=== PATIENT | male | born 1935 | race Caucasian/White ===

== ENCOUNTER 2021-03-04 12:15 | Emergency (ER) | payer MEDICARE, MEDICAID ==
[~2021-03-04] VITALS: Ht 175.3 cm; Wt 95.0 kg
[2021-03-04] MEDS ORDERED: SODIUM CHLORIDE 0.9% 500 ML IV ONE (12:45)
[2021-03-04 13:23] LABS: BG BASE EXCESS -3.1 mmol/L (-2.0-2.0); BG CARBOXYHEMOGLOBIN 0.2 % (0.5-1.5); BG DEOXYHEMOGLOBIN 3.9 % (0.0-5.0); BG FRACTION INSPIRED OXYGEN 21; BG METHEMOGLOBIN 0.2 % (0.0-1.5); BG OXYGEN SATURATION 96.1 % (92.0-98.5); BG OXYHEMOGLOBIN 95.7 % (94.0-97.0); BG PCO2 23.7 mmHg (35.0-45.0); BG PH 7.499 (7.350-7.450); BG PO2 82.4 mmHg (75.0-100.0); BG SAMPLE SITE LEFT RADIAL; BG TOTAL HEMOGLOBIN 14.6 g/dL (12.0-18.0); BG VENT MODE ROOM AIR
[2021-03-04 13:24] LABS: HEMOGLOBIN. 15.2 g/dL (14.0-18.0); MEAN CORPUSCULAR HEMOGLOBIN 32.3 pg (28.0-32.0); MEAN CORPUSCULAR VOLUME 91.6 fL (80.0-94.0); MEAN PLATELET VOLUME 9.4 fl (7.4-10.4); PLATELET 52 x1000/uL (130-400); RED CELL DISTRIBUTION WIDTH 13.9 % (11.6-14.6)
[2021-03-04 13:28] LABS: CHLORIDE 105 mEq/L (98-107)
[2021-03-04 13:35] LABS: ETHANOL BLOOD < 10 mg/dL
[2021-03-04 13:37] LABS: CREATINE KINASE 176 IU/L (39-308)
[2021-03-04 13:42] LABS: PLATELET ESTIMATE DECREASED
[2021-03-04] MEDS ORDERED: SODIUM CHLORIDE 0.9% 1000ML BAG (SEPSIS BOLUS) IV ONE (14:00)
[2021-03-04 14:43] LABS: CLARITY URINE CLOUDY (CLEAR); COLOR URINE DARK YELLOW (YELLOW); KETONES URINE TRACE (NEGATIVE); LEUKOCYTE ESTERASE URINE 2+ (NEGATIVE); NITRITE URINE NEGATIVE (NEGATIVE); OCCULT BLOOD URINE 2+ (NEGATIVE); PROTEIN URINE 2+ (NEGATIVE); SPECIFIC GRAVITY URINE 1.026 (1.005-1.030)
[2021-03-04] MEDS ORDERED: AZITHROMYCIN 500MG/250ML 250 ML IV ONE (14:45)
[2021-03-04] MEDS ORDERED: CEFTRIAXONE 1 G PREMIX 50 ML IV ONE (14:45)
[2021-03-04 15:14] LABS: *BARBITURATES SCREEN URINE NEGATIVE (NEGATIVE); *BENZODIAZEPINES SCREEN URINE NEGATIVE (NEGATIVE)
[2021-03-04 15:15] LABS: *COCAINE SCREEN URINE NEGATIVE (NEGATIVE); CANNABINOID URINE SCREEN NEGATIVE (NEGATIVE); METHADONE URINE SCREEN NEGATIVE (NEGATIVE); OPIATES URINE SCREEN NEGATIVE (NEGATIVE); PHENCYCLIDINE URINE SCREEN NEGATIVE (NEGATIVE)
[2021-03-04 15:17] LABS: *AMPHETAMINES SCREEN URINE NEGATIVE (NEGATIVE)
[2021-03-04 19:13] VITALS: BP 112/75
== END 2021-03-04 19:24 | disposition short-term general hospital (02) ==
LOC: ER 12:27 → EDBEDREQ 14:52 → EDBEDREQTM 14:52 → ER 19:24 → CANBEDREQ 22:34
DX: E11.65 Type 2 diabetes mellitus with hyperglycemia (principal); G93.49 Other encephalopathy; N39.0 Urinary tract infection, site not specified; N28.9 Disorder of kidney and ureter, unspecified; I10 Essential (primary) hypertension; Z20.822 Contact with and (suspected) exposure to COVID-19
CPT/HCPCS: 36415; 36600; 70450; 71045; 80053; 80305; 80307; 80320; 80329; 81003; 82140; 82375; 82550; 82805; 83690; 83880; 84443; 84484; 85025; 87077; 87086; 87186; 87426; 93005; 96365; 96366; 96375; 99291; C9803; J0456; J0696; J7030; J7040; U0003; U0005; G0480

== ENCOUNTER 2021-03-20 16:13 | Emergency (ER) | payer MEDICARE, MEDICAID ==
[~2021-03-20] VITALS: Ht 172.7 cm; Wt 70.0 kg
[2021-03-20] MEDS ORDERED: CEFTRIAXONE 1 G PREMIX 50 ML IV ONE (17:15)
[2021-03-20] MEDS ORDERED: SODIUM CHLORIDE 0.9% 1,000 ML IV ONE (17:15)
[2021-03-20] MEDS ORDERED: AZITHROMYCIN 500MG/250ML 250 ML IV ONE (17:15)
[2021-03-20 18:46] LABS: BASOPHILS % 0.3 % (0.0-2.0); EOSINOPHILS % 0.2 % (0.0-5.0); HEMATOCRIT. 44.7 % (42.0-52.0); HEMOGLOBIN. 14.8 g/dL (14.0-18.0); LYMPHOCYTES % 7.7 % (20.0-50.0); MEAN CORPUSCULAR HEMOGLOBIN 30.3 pg (28.0-32.0); MEAN CORPUSCULAR VOLUME 91.6 fL (80.0-94.0); MEAN PLATELET VOLUME 8.6 fl (7.4-10.4); NEUTROPHILS % 89.8 % (40.0-76.0); PLATELET 272 x1000/uL (130-400); RED BLOOD CELL COUNT 4.88 mill/uL (4.7-6.1); RED CELL DISTRIBUTION WIDTH 15.1 % (11.6-14.6)
[2021-03-20 18:50] LABS: CHLORIDE 107 mEq/L (98-107)
[2021-03-20 18:55] LABS: ETHANOL BLOOD < 10 mg/dL
[2021-03-20 18:59] LABS: CREATINE KINASE 37 IU/L (39-308)
[2021-03-20 19:32] LABS: *AMPHETAMINES SCREEN URINE NEGATIVE (NEGATIVE); *BARBITURATES SCREEN URINE NEGATIVE (NEGATIVE); *BENZODIAZEPINES SCREEN URINE NEGATIVE (NEGATIVE); *COCAINE SCREEN URINE NEGATIVE (NEGATIVE); METHADONE URINE SCREEN NEGATIVE (NEGATIVE); OPIATES URINE SCREEN NEGATIVE (NEGATIVE)
[2021-03-20 19:33] LABS: CANNABINOID URINE SCREEN NEGATIVE (NEGATIVE); PHENCYCLIDINE URINE SCREEN NEGATIVE (NEGATIVE)
[2021-03-20 19:46] LABS: CLARITY URINE CLEAR (CLEAR); COLOR URINE YELLOW (YELLOW); KETONES URINE NEGATIVE (NEGATIVE); LEUKOCYTE ESTERASE URINE NEGATIVE (NEGATIVE); NITRITE URINE NEGATIVE (NEGATIVE); OCCULT BLOOD URINE 1+ (NEGATIVE); PROTEIN URINE TRACE (NEGATIVE); SPECIFIC GRAVITY URINE 1.015 (1.005-1.030)
[2021-03-20 21:05] VITALS: BP 126/68
== END 2021-03-21 00:13 | disposition short-term general hospital (02) ==
LOC: ER 16:13
DX: U07.1 COVID-19 (principal); E87.2 Acidosis; R41.82 Altered mental status, unspecified; I11.0 Hypertensive heart disease with heart failure; I50.9 Heart failure, unspecified
CPT/HCPCS: 36415; 70450; 71045; 80053; 80305; 80307; 80320; 80329; 81003; 82010; 82140; 82550; 82962; 83605; 83690; 84443; 84484; 85025; 87426; 93005; 96365; 96367; 99291; J0456; J0696; J7030; G0480

== ENCOUNTER 2021-04-05 19:59 | Inpatient (IN) | payer MEDICARE, MEDICAID ==
[~2021-04-05] VITALS: Ht 172.7 cm; Wt 83.5 kg
[2021-04-05] MEDS ORDERED: ACETAMINOPHEN 650MG SUPP PR STA (20:19)
[2021-04-05] MEDS ORDERED: DOXYCYCLINE 100MG in DEXTROSE 5% WATER 100ML IV NR (20:30)
[2021-04-05] MEDS ORDERED: CEFTRIAXONE 1 G PREMIX 50 ML IV ONE (20:30)
[2021-04-05] MEDS ORDERED: SODIUM CHLORIDE 0.9% 1000ML BAG (SEPSIS BOLUS) IV ONE (20:30)
[2021-04-05] MEDS ORDERED: DOXYCYCLINE HYCLATE 100 MG/VIAL IV ONE (20:30)
[2021-04-05 21:01] LABS: BASOPHILS % 0.2 % (0.0-2.0); EOSINOPHILS % 0.1 % (0.0-5.0); MONOCYTES % 2.2 % (2.0-8.0)
[2021-04-05 21:08] LABS: CHLORIDE 98 mEq/L (98-107)
[2021-04-05 21:11] LABS: HEMATOCRIT. 33.7 % (42.0-52.0); HEMOGLOBIN. 11.3 g/dL (14.0-18.0); MEAN CORPUSCULAR HEMOGLOBIN 30.8 pg (28.0-32.0); MEAN CORPUSCULAR VOLUME 92.1 fL (80.0-94.0); MEAN PLATELET VOLUME 10.5 fl (7.4-10.4); PLATELET 162 x1000/uL (130-400); RED BLOOD CELL COUNT 3.66 mill/uL (4.7-6.1); RED CELL DISTRIBUTION WIDTH 17.4 % (11.6-14.6)
[2021-04-05 22:12] LABS: CLARITY URINE CLEAR (CLEAR); COLOR URINE DARK YELLOW (YELLOW); KETONES URINE TRACE (NEGATIVE); LEUKOCYTE ESTERASE URINE 1+ (NEGATIVE); NITRITE URINE NEGATIVE (NEGATIVE); OCCULT BLOOD URINE TRACE (NEGATIVE); PROTEIN URINE NEGATIVE (NEGATIVE); SPECIFIC GRAVITY URINE 1.022 (1.005-1.030)
[2021-04-05] MEDS ORDERED: DEXTROSE 50% WATER 50ML SYRINGE IV ONE (22:30)
[2021-04-05 22:49] LABS: PLATELET ESTIMATE NORMAL
[2021-04-05] MEDS ORDERED: NOREPINEPHRINE 8 MG in DEXT 5% WATER 242 ML IV PRN ×2 (23:15→23:30)
[2021-04-05] MEDS ORDERED: SODIUM CHLORIDE 0.9% 1,000 ML IV ONE (23:15)
[2021-04-05] MEDS ORDERED: METOPROLOL TARTRATE 5MG/5ML VIAL IV NR (23:22)
[2021-04-06 05:11] LABS: HEMATOCRIT. 33.1 % (42.0-52.0); HEMOGLOBIN. 10.8 g/dL (14.0-18.0); MEAN CORPUSCULAR HEMOGLOBIN 30.6 pg (28.0-32.0); MEAN CORPUSCULAR VOLUME 94.1 fL (80.0-94.0); MEAN PLATELET VOLUME 10.2 fl (7.4-10.4); PLATELET 151 x1000/uL (130-400); RED BLOOD CELL COUNT 3.52 mill/uL (4.7-6.1); RED CELL DISTRIBUTION WIDTH 17.2 % (11.6-14.6)
[2021-04-06 05:16] LABS: CHLORIDE 103 mEq/L (98-107)
[2021-04-06] MEDS: DEXT 5%/0.45% NACL 1000ML 1,000 ML IV SCH (06:00)
[2021-04-06] MEDS ORDERED: DEXT 5%/0.45% NACL 1000ML 1,000 ML IV SCH (08:00)
[2021-04-06] MEDS: DOXYCYCLINE 100MG in DEXTROSE 5% WATER 100ML IV SCH ×2 (09:00→23:52)
[2021-04-06] MEDS ORDERED: PHENYLEPHRINE 100 MG in DEXT 5% WATER 240 ML IV PRN ×4 (12:45)
[2021-04-06] MEDS ORDERED: IPRATROPIUM BROMIDE (0.02%) 0.5MG/2.5ML NEB HHN PRN (13:15)
[2021-04-06] MEDS ORDERED: ACETAMINOPHEN 325MG TABLET PO PRN (13:15)
[2021-04-06] MEDS ORDERED: ONDANSETRON HCL 4MG/2ML INJ IV PRN (13:15)
[2021-04-06] MEDS: PANTOPRAZOLE SODIUM 40 MG/VIAL IV SCH (14:05)
[2021-04-06 15:09] LABS: INR 1.1; PROTHROMBIN TIME 12.2 sec (9.6-11.0)
[2021-04-06 16:59] LABS: PLATELET ESTIMATE NORMAL
[2021-04-06] MEDS ORDERED: CEFTRIAXONE 1 G PREMIX 50 ML IV SCH (20:00)
[2021-04-06] MEDS ORDERED: MEROPENEM 1,000 MG in SODIUM CHLORIDE 0.9% 100 ML IV SCH (23:00)
[2021-04-07] VITALS (19 sets, daily range): BP systolic 87–143; BP diastolic 41–78
[2021-04-07] MEDS: DEXT 5%/0.45% NACL 1000ML 1,000 ML IV SCH ×4 (00:04→22:12)
[2021-04-07 05:35] LABS: HEMATOCRIT. 31.3 % (42.0-52.0); HEMOGLOBIN. 10.5 g/dL (14.0-18.0); MEAN CORPUSCULAR HEMOGLOBIN 31.1 pg (28.0-32.0); MEAN CORPUSCULAR VOLUME 92.5 fL (80.0-94.0); MEAN PLATELET VOLUME 9.4 fl (7.4-10.4); PLATELET 124 x1000/uL (130-400); RED BLOOD CELL COUNT 3.38 mill/uL (4.7-6.1); RED CELL DISTRIBUTION WIDTH 17.5 % (11.6-14.6)
[2021-04-07 05:43] LABS: CHLORIDE 106 mEq/L (98-107)
[2021-04-07 05:53] LABS: PHOSPHORUS 4.1 mg/dL (2.5-4.9)
[2021-04-07 06:00] LABS: CREATINE KINASE 571 IU/L (39-308)
[2021-04-07] MEDS ORDERED: POTASSIUM CHLORIDE INJ 40 MEQ in DEXT 5% WATER 250 ML IV ONE (09:45)
[2021-04-07] MEDS: DOXYCYCLINE 100MG in DEXTROSE 5% WATER 100ML IV SCH ×2 (10:00→20:54)
[2021-04-07] MEDS: PANTOPRAZOLE SODIUM 40 MG/VIAL IV SCH (10:25)
[2021-04-07] MEDS ORDERED: MEROPENEM 1,000 MG in SODIUM CHLORIDE 0.9% 100 ML IV SCH (14:00)
[2021-04-07 14:27] LABS: TOTAL IRON BINDING CAPACITY 130 ug/dL (250-450)
[2021-04-07 14:46] LABS: FERRITIN 859 ng/mL (22-322)
[2021-04-07] MEDS: KCL 20MEQ/100ML X 2 FOR TOTAL KCL 40MEQ/200ML IV SCH ×2 (14:56→17:08)
[2021-04-07 15:16] LABS: VITAMIN B12 SERUM >2000 pg/mL pg/mL (211-911)
[2021-04-07 16:07] LABS: HEPATITIS B SURFACE ANTIGEN NEGATIVE
[2021-04-07 16:21] LABS: PLATELET ESTIMATE SLIGHTLY DECREASED
[2021-04-07] MEDS ORDERED: ENOXAPARIN 30MG/0.3ML SYR SUBCUT SCH (20:00)
[2021-04-07] MEDS: CEFTRIAXONE 2 G in DEXTROSE 5% WATER 50 ML IV SCH (22:12)
[2021-04-08] VITALS (20 sets, daily range): BP systolic 102–131; BP diastolic 49–88
[2021-04-08] MEDS ORDERED: VANCOMYCIN HCL 1 GM/VIAL PO SCH
[2021-04-08] MEDS: VANCOMYCIN 1000MG/20ML ORAL SOLN PO SCH ×5 (00:18→23:56)
[2021-04-08 07:10] LABS: HEMATOCRIT. 34.8 % (42.0-52.0); HEMOGLOBIN. 11.7 g/dL (14.0-18.0); MEAN CORPUSCULAR HEMOGLOBIN 31.6 pg (28.0-32.0); MEAN CORPUSCULAR VOLUME 93.6 fL (80.0-94.0); MEAN PLATELET VOLUME 9.9 fl (7.4-10.4); PLATELET 90 x1000/uL (130-400); RED BLOOD CELL COUNT 3.71 mill/uL (4.7-6.1); RED CELL DISTRIBUTION WIDTH 17.5 % (11.6-14.6)
[2021-04-08 07:59] LABS: PHOSPHORUS 3.1 mg/dL (2.5-4.9)
[2021-04-08] MEDS: DEXT 5%/0.45% NACL 1000ML 1,000 ML IV SCH ×2 (08:56→20:39)
[2021-04-08] MEDS: DOXYCYCLINE 100MG in DEXTROSE 5% WATER 100ML IV SCH (08:56)
[2021-04-08] MEDS: PANTOPRAZOLE SODIUM 40 MG/VIAL IV SCH (08:56)
[2021-04-08] MEDS: METRONIDAZOLE 500MG TABLET PO SCH ×2 (14:20→22:55)
[2021-04-08 17:11] LABS: PLATELET ESTIMATE DECREASED
[2021-04-08] MEDS ORDERED: DIATR MEGLU/DIATRIZOATE SOLN 30ML ONE (19:25)
[2021-04-08] MEDS: CEFTRIAXONE 2 G in DEXTROSE 5% WATER 50 ML IV SCH (20:39)
[2021-04-09] VITALS (18 sets, daily range): BP systolic 94–141; BP diastolic 24–80
[2021-04-09] MEDS: METRONIDAZOLE 500MG TABLET PO SCH ×3 (05:57→22:05)
[2021-04-09] MEDS: VANCOMYCIN 1000MG/20ML ORAL SOLN PO SCH ×3 (05:57→18:00)
[2021-04-09] MEDS: DEXT 5%/0.45% NACL 1000ML 1,000 ML IV SCH (07:18)
[2021-04-09 07:59] LABS: HEMATOCRIT. 31.7 % (42.0-52.0); HEMOGLOBIN. 10.9 g/dL (14.0-18.0); MEAN CORPUSCULAR HEMOGLOBIN 33.1 pg (28.0-32.0); MEAN CORPUSCULAR VOLUME 95.8 fL (80.0-94.0); MEAN PLATELET VOLUME 9.8 fl (7.4-10.4); PLATELET 71 x1000/uL (130-400); RED CELL DISTRIBUTION WIDTH 17.2 % (11.6-14.6)
[2021-04-09 09:06] LABS: FOLATE HEMATOCRIT 31.2 % (37.5-51.0)
[2021-04-09] MEDS: PANTOPRAZOLE SODIUM 40 MG/VIAL IV SCH (09:33)
[2021-04-09] MEDS ORDERED: DEXTROSE 50% WATER 50ML SYRINGE IV PRN (12:00)
[2021-04-09] MEDS: INSULIN LISPRO 100 UNITS/ML SUBCUT SCH ×3 (12:31→22:06)
[2021-04-09 14:04] LABS: FOLIC ACID (FOLATE) SERUM 19.8 ng/mL (>5.38)
[2021-04-09 14:38] LABS: PLATELET ESTIMATE DECREASED
[2021-04-09] MEDS: BLOOD SUGAR DIAGNOSTIC STRIP TEST SCH ×2 (16:50→21:28)
[2021-04-09 17:06] LABS: FOLATE RBC 1468 ng/mL (>498)
[2021-04-09] MEDS: CEFTRIAXONE 2 G in DEXTROSE 5% WATER 50 ML IV SCH (21:15)
[2021-04-10] VITALS (15 sets, daily range): BP systolic 106–170; BP diastolic 58–138
[2021-04-10] MEDS: VANCOMYCIN 1000MG/20ML ORAL SOLN PO SCH ×4 (00:40→18:43)
[2021-04-10] MEDS: METRONIDAZOLE 500MG TABLET PO SCH ×3 (06:10→22:12)
[2021-04-10] MEDS: BLOOD SUGAR DIAGNOSTIC STRIP TEST SCH ×4 (06:14→20:53)
[2021-04-10] MEDS: INSULIN LISPRO 100 UNITS/ML SUBCUT SCH ×4 (08:46→21:39)
[2021-04-10] MEDS: PANTOPRAZOLE SODIUM 40 MG/VIAL IV SCH (08:46)
[2021-04-10 12:20] LABS: HEMATOCRIT. 32.7 % (42.0-52.0); HEMOGLOBIN. 10.9 g/dL (14.0-18.0); MEAN CORPUSCULAR HEMOGLOBIN 31.4 pg (28.0-32.0); MEAN CORPUSCULAR VOLUME 93.8 fL (80.0-94.0); MEAN PLATELET VOLUME 9.6 fl (7.4-10.4); PLATELET 64 x1000/uL (130-400); RED BLOOD CELL COUNT 3.49 mill/uL (4.7-6.1); RED CELL DISTRIBUTION WIDTH 17.1 % (11.6-14.6)
[2021-04-10 12:22] LABS: CHLORIDE 116 mEq/L (98-107)
[2021-04-10 12:28] LABS: PHOSPHORUS 1.5 mg/dL (2.5-4.9)
[2021-04-10] MEDS ORDERED: POTASSIUM PHOS,M-BASIC-D-BASIC 30 MMOL in DEXT 5% WATER 500 ML IV ONE (13:30)
[2021-04-10 16:02] LABS: PLATELET ESTIMATE DECREASED
[2021-04-10] MEDS: CEFTRIAXONE 2 G in DEXTROSE 5% WATER 50 ML IV SCH (20:11)
[2021-04-11] VITALS (13 sets, daily range): BP systolic 90–150; BP diastolic 32–76
[2021-04-11] MEDS: VANCOMYCIN 1000MG/20ML ORAL SOLN PO SCH ×4 (01:45→17:32)
[2021-04-11] MEDS: METRONIDAZOLE 500MG TABLET PO SCH ×3 (05:39→22:03)
[2021-04-11] MEDS: BLOOD SUGAR DIAGNOSTIC STRIP TEST SCH ×4 (06:39→21:50)
[2021-04-11 07:31] LABS: BASOPHILS % 0.2 % (0.0-2.0); EOSINOPHILS % 0.1 % (0.0-5.0); HEMATOCRIT. 26.7 % (42.0-52.0); HEMOGLOBIN. 9.2 g/dL (14.0-18.0); LYMPHOCYTES % 7.9 % (20.0-50.0); MEAN CORPUSCULAR HEMOGLOBIN 33.3 pg (28.0-32.0); MEAN CORPUSCULAR VOLUME 96.3 fL (80.0-94.0); MEAN PLATELET VOLUME 10.2 fl (7.4-10.4); MONOCYTES % 2.3 % (2.0-8.0); NEUTROPHILS % 89.5 % (40.0-76.0); PLATELET 52 x1000/uL (130-400); RED BLOOD CELL COUNT 2.77 mill/uL (4.7-6.1); RED CELL DISTRIBUTION WIDTH 17.2 % (11.6-14.6)
[2021-04-11] MEDS: PANTOPRAZOLE SODIUM 40 MG/VIAL IV SCH (08:14)
[2021-04-11] MEDS: INSULIN LISPRO 100 UNITS/ML SUBCUT SCH ×4 (08:15→21:57)
[2021-04-11] MEDS ORDERED: SODIUM POLYSTYRENE SULFONATE 15 G/60 ML BOT PO SCH (10:00)
[2021-04-11] MEDS ORDERED: SODIUM BICARBONATE 8.4% 1 MEQ/ML 50ML SYR IV SCH (10:00)
[2021-04-11] MEDS ORDERED: SODIUM POLYSTYRENE SULFONATE 15 G/60 ML BOT PO ONE (10:15)
[2021-04-11 15:40] LABS: HEMATOCRIT 25.7 % (42.0-52.0); HEMOGLOBIN 8.6 g/dL (14.0-18.0)
[2021-04-11] MEDS: CEFTRIAXONE 2 G in DEXTROSE 5% WATER 50 ML IV SCH (21:46)
[2021-04-12] VITALS (30 sets, daily range): BP systolic 83–153; BP diastolic 35–77
[2021-04-12] MEDS: VANCOMYCIN 1000MG/20ML ORAL SOLN PO SCH ×4 (00:38→17:20)
[2021-04-12] MEDS: METRONIDAZOLE 500MG TABLET PO SCH ×3 (05:01→22:51)
[2021-04-12] MEDS: BLOOD SUGAR DIAGNOSTIC STRIP TEST SCH ×4 (06:21→21:30)
[2021-04-12 06:56] LABS: BASOPHILS % 0.2 % (0.0-2.0); EOSINOPHILS % 0.2 % (0.0-5.0); HEMOGLOBIN. 7.9 g/dL (14.0-18.0); LYMPHOCYTES % 10.2 % (20.0-50.0); MEAN CORPUSCULAR HEMOGLOBIN 32.1 pg (28.0-32.0); MEAN CORPUSCULAR VOLUME 96.9 fL (80.0-94.0); MEAN PLATELET VOLUME 10.6 fl (7.4-10.4); MONOCYTES % 2.7 % (2.0-8.0); NEUTROPHILS % 86.7 % (40.0-76.0); PLATELET 87 x1000/uL (130-400); RED BLOOD CELL COUNT 2.48 mill/uL (4.7-6.1); RED CELL DISTRIBUTION WIDTH 17.6 % (11.6-14.6)
[2021-04-12 07:08] LABS: PHOSPHORUS 3.1 mg/dL (2.5-4.9)
[2021-04-12] MEDS: PANTOPRAZOLE SODIUM 40 MG/VIAL IV SCH (08:18)
[2021-04-12] MEDS: INSULIN LISPRO 100 UNITS/ML SUBCUT SCH ×4 (08:18→21:39)
[2021-04-12] MEDS: METOPROLOL TARTRATE 25MG TABLET PO SCH ×2 (08:19→20:54)
[2021-04-12] MEDS: CEFTRIAXONE 2 G in DEXTROSE 5% WATER 50 ML IV SCH (21:38)
[2021-04-13] VITALS (10 sets, daily range): BP systolic 93–121; BP diastolic 30–74
[2021-04-13] MEDS: METRONIDAZOLE 500MG TABLET PO SCH ×2 (06:17→13:42)
[2021-04-13] MEDS: BLOOD SUGAR DIAGNOSTIC STRIP TEST SCH ×5 (06:17→23:18)
[2021-04-13 07:10] LABS: BASOPHILS % 0.5 % (0.0-2.0); EOSINOPHILS % 0.1 % (0.0-5.0); HEMATOCRIT. 27.3 % (42.0-52.0); HEMOGLOBIN. 8.9 g/dL (14.0-18.0); LYMPHOCYTES % 9.1 % (20.0-50.0); MEAN CORPUSCULAR HEMOGLOBIN 31.5 pg (28.0-32.0); MEAN CORPUSCULAR VOLUME 96.5 fL (80.0-94.0); MEAN PLATELET VOLUME 11.3 fl (7.4-10.4); MONOCYTES % 2.6 % (2.0-8.0); NEUTROPHILS % 87.7 % (40.0-76.0); PLATELET 68 x1000/uL (130-400); RED BLOOD CELL COUNT 2.83 mill/uL (4.7-6.1); RED CELL DISTRIBUTION WIDTH 17.1 % (11.6-14.6)
[2021-04-13 07:38] LABS: PHOSPHORUS 3.1 mg/dL (2.5-4.9)
[2021-04-13] MEDS: PANTOPRAZOLE SODIUM 40 MG/VIAL IV SCH (08:30)
[2021-04-13] MEDS: INSULIN LISPRO 100 UNITS/ML SUBCUT SCH ×4 (08:30→23:12)
[2021-04-13] MEDS: METOPROLOL TARTRATE 25MG TABLET PO SCH ×2 (08:30→21:06)
[2021-04-13] MEDS ORDERED: INSULIN GLARGINE UD 100 UNITS/ML SYR SUBCUT SCH (14:00)
[2021-04-13 20:23] LABS: HEMATOCRIT 27.1 % (42.0-52.0)
[2021-04-13] MEDS: CEFTRIAXONE 2 G in DEXTROSE 5% WATER 50 ML IV SCH (21:06)
[2021-04-13] MEDS: VANCOMYCIN 1000MG/20ML ORAL SOLN PO SCH ×2 (21:14)
[2021-04-13] MEDS: INSULIN GLARGINE UD 100 UNITS/ML SYR SUBCUT SCH (23:13)
[2021-04-14] VITALS (11 sets, daily range): BP systolic 100–128; BP diastolic 44–67
[2021-04-14] MEDS: VANCOMYCIN 1000MG/20ML ORAL SOLN PO SCH ×3 (05:36→17:26)
[2021-04-14] MEDS: INSULIN LISPRO 100 UNITS/ML SUBCUT SCH ×3 (06:23→17:26)
[2021-04-14] MEDS: BLOOD SUGAR DIAGNOSTIC STRIP TEST SCH ×3 (06:25→17:17)
[2021-04-14 07:21] LABS: PHOSPHORUS 3.1 mg/dL (2.5-4.9)
[2021-04-14] MEDS ORDERED: SODIUM CHLORIDE 0.45% 1,000 ML IV SCH (09:00)
[2021-04-14] MEDS: PANTOPRAZOLE SODIUM 40 MG/VIAL IV SCH (09:18)
[2021-04-14] MEDS: METOPROLOL TARTRATE 25MG TABLET PO SCH (09:19)
[2021-04-14 09:27] LABS: BASOPHILS % 0.3 % (0.0-2.0); EOSINOPHILS % 0.1 % (0.0-5.0); HEMATOCRIT. 29.3 % (42.0-52.0); HEMOGLOBIN. 9.3 g/dL (14.0-18.0); LYMPHOCYTES % 7.4 % (20.0-50.0); MEAN CORPUSCULAR HEMOGLOBIN 31.5 pg (28.0-32.0); MEAN CORPUSCULAR VOLUME 99.4 fL (80.0-94.0); MEAN PLATELET VOLUME 11.4 fl (7.4-10.4); MONOCYTES % 3.1 % (2.0-8.0); NEUTROPHILS % 89.1 % (40.0-76.0); PLATELET 56 x1000/uL (130-400); RED BLOOD CELL COUNT 2.94 mill/uL (4.7-6.1); RED CELL DISTRIBUTION WIDTH 18.3 % (11.6-14.6)
[2021-04-14] MEDS: INSULIN GLARGINE UD 100 UNITS/ML SYR SUBCUT SCH (10:05)
== END 2021-04-14 18:45 | disposition hospice, home (50) | DRG 720 ==
LOC: ER 19:59 → MICUSO 04-06 01:37 → EDBEDREQ 04-06 01:50 → EDBEDREQTM 04-06 01:50 → EDBEDREQSVC 04-06 01:50 → EDBEDREQDT 04-06 01:50 → EDBEDREQ 04-06 01:51 → 3WST 04-07 12:45
PROVIDERS: ADMIT Internal Medicine; ATTEND Internal Medicine
PROC: 02HV33Z Insertion of Infusion Device into Superior Vena Cava, Percutaneous Approach (ICD-10-PCS; principal; 2021-04-06)
PROC: B548ZZA Ultrasonography of Superior Vena Cava, Guidance (ICD-10-PCS; 2021-04-06)
PROC: 02HV33Z Insertion of Infusion Device into Superior Vena Cava, Percutaneous Approach (ICD-10-PCS; 2021-04-09)
PROC: B548ZZA Ultrasonography of Superior Vena Cava, Guidance (ICD-10-PCS; 2021-04-09)
PROC: 30233N1 Transfusion of Nonautologous Red Blood Cells into Peripheral Vein, Percutaneous Approach (ICD-10-PCS; 2021-04-12)
DX: A41.50 Gram-negative sepsis, unspecified (principal); N17.0 Acute kidney failure with tubular necrosis; R65.21 Severe sepsis with septic shock; G93.41 Metabolic encephalopathy; E43 Unspecified severe protein-calorie malnutrition; I21.4 Non-ST elevation (NSTEMI) myocardial infarction; A04.72 Enterocolitis due to Clostridium difficile, not specified as recurrent; D69.6 Thrombocytopenia, unspecified; I48.20 Chronic atrial fibrillation, unspecified; E11.649 Type 2 diabetes mellitus with hypoglycemia without coma; D64.9 Anemia, unspecified; E11.22 Type 2 diabetes mellitus with diabetic chronic kidney disease; I13.0 Hypertensive heart and chronic kidney disease with heart failure and stage 1 through stage 4 chronic kidney disease, or unspecified chronic kidney disease; I50.9 Heart failure, unspecified; E87.3 Alkalosis; A09 Infectious gastroenteritis and colitis, unspecified; I42.9 Cardiomyopathy, unspecified; E11.65 Type 2 diabetes mellitus with hyperglycemia; F03.90 Unspecified dementia, unspecified severity, without behavioral disturbance, psychotic disturbance, mood disturbance, and anxiety; Z66 Do not resuscitate; Z20.822 Contact with and (suspected) exposure to COVID-19; T14.8XXA Other injury of unspecified body region, initial encounter; N18.2 Chronic kidney disease, stage 2 (mild); E87.4 Mixed disorder of acid-base balance; I38 Endocarditis, valve unspecified; E87.5 Hyperkalemia; Z74.01 Bed confinement status; Z86.73 Personal history of transient ischemic attack (TIA), and cerebral infarction without residual deficits; Z68.28 Body mass index [BMI] 28.0-28.9, adult; Z79.01 Long term (current) use of anticoagulants; Z51.5 Encounter for palliative care; Z68.30 Body mass index [BMI] 30.0-30.9, adult; Z82.49 Family history of ischemic heart disease and other diseases of the circulatory system; Z90.49 Acquired absence of other specified parts of digestive tract
CPT/HCPCS: 36415; 71045; 74018; 74176; 76700; 76937; 80048; 80053; 80076; 81003; 82140; 82270; 82550; 82607; 82728; 82746; 82747; 82962; 83036; 83540; 83550; 83605; 83735; 83880; 84100; 84134; 84145; 84484; 85014; 85018; 85025; 85044; 86705; 86709; 86803; 86850; 86900; 86920; 87015; 87045; 87077; 87186; 87340; 87426; 87427; 87449; 87493; 89055; 92610; 93005; 93306; 93923; 99291; A6261; C1725; C9113; J0696; J1650; J1815; J2185; J3370; J3480; J3490; J7030; J7050; J7060; P9016; Q9963